=== PATIENT | male | born 1955 | race Caucasian/White ===

== ENCOUNTER 2016-12-30 13:19 | Emergency (ER) | payer OTHER ==
[~2016-12-30] VITALS: Ht 167.6 cm; Wt 78.0 kg
[2016-12-30 13:23] VITALS: TEMP 36.7; Ht 167.6 cm; Wt 78.0 kg
[2016-12-30] MEDS ORDERED: CRS5 PO (13:50)
[2016-12-30 14:46] VITALS: BP 147/88; PULSE 71; O2SAT 95
--- NOTE | 2016-12-31 19:18 | EMERGENCY ROOM VISIT NOTE ---
ED Visit Note First contact with patient: 13:34 Chief Complaint: Sewage water exposure. History of Present Illness: Mr. Smith is a 61-year-old white male who ambulates into the ED complaining of a work related sewage water exposure. Patient reports he works on a [employer]. 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 While working on the drain he reports himself and to other employees were splashed with road sewage. He reports immediately clean the areas that included the his face and arms with soap and water After exposure. 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 I did speak to the patient extensively about the type materials any did not believe that there was blood or human waste in the sewage. Currently he is not having any symptoms. Review of Systems: As noted above in history of present illness. Past Medical History: Dyslipidemia, status post hernia repair. Current Medications: Crestor. Allergies to Medications: Sulfa. Social History: Patient is currently employed; he feels safe in his home environment; he denies tobacco and alcohol use. Physical Examination: Vital Signs: Date Time Temp Pulse Resp B/P (MAP) Pulse Ox O2 Delivery O2 Flow Rate FiO2 12/30/16 14:46 71 147/88 95 Room Air 12/30/16 13:23 36.7 93 16 135/89 95 Room Air GENERAL: 61-year-old male in no acute distress, nontoxic-appearing, afebrile and hemodynamically stable. NEUROLOGICAL: Awake, alert and oriented to person, place and time. Answering questions appropriately and following commands. Normal gait. Good hand eye coordination. SKIN: Warm, dry and pink. No soft tissue eruptions or trauma noted. HEENT: Atraumatic and normocephalic. PERRLA. Sclera white and conjunctiva pink. No drainage from naris. Oral cavity moist and pink. Pharynx is nonerythematous or edematous. Speech normal. No lymphadenopathy. Trachea midline. No jugular venous distention. THORAX: Lungs sounds are clear to auscultation and equal bilaterally with symmetrical chest wall. ABDOMEN: Flat, soft and nontender. Positive bowel sounds in all quadrants. No guarding, rigidity or organomegaly. EXTREMITIES: Moves all extremities well on command and with purpose. All distal neurovascular statuses are intact and equal bilaterally. ED Course: Patient is assessed as noted above. Patient's medication list was reviewed. Patient's case was reviewed with Dr. Garcia; he did not feel hepatitis B immunizations were needed at this time but did recommend that I talked to infectious disease department. I contacted Breanna Jurado, infectious disease nurse specialist, and she consulted Dr. Raygoza of infectious disease and they recommended that the patient be immunized against hepatitis A and B; they recommended [facility]; additionally she did report they could start the series but they would have to make an appointment and not be seen for approximately one week. The [facility] was not available in this hospital's pharmacy. I then contacted occupational medicine and spoke with Ms. Mancilla who reported she had [facility] available at her office and would be willing to see the patient now and in follow-up. Patient was educated about today's findings and instructed on his treatment plan ; he verbalizes understanding and agreement with this plan. Clinical Impression: Work related injury. Sewage exposure. Disposition: Patient discharged home in stable condition accompanied by male friend; prior to departure he was reassessed and remained pain and symptom-free. Plan: Patient was encouraged to go immediately to the Occupational Medicine office in the [facility] room 302 for further evaluation and care and immunizations.
== END 2016-12-30 15:03 | disposition home or self-care (01) ==
LOC: C.EDB 13:21 → C.EDD 15:03
DX: Z77.098 Contact with and (suspected) exposure to other hazardous, chiefly nonmedicinal, chemicals (principal); Y92.89 Other specified places as the place of occurrence of the external cause; Y99.0 Civilian activity done for income or pay; E78.5 Hyperlipidemia, unspecified; Z79.899 Other long term (current) drug therapy; Z88.2 Allergy status to sulfonamides

== ENCOUNTER → 2016-12-30 | Outpatient (CLI) | payer OTHER ==
[~2016-12-30] MED LIST: CRS5 PO
== END | disposition home or self-care (01) ==
LOC: C.LAB1850 15:43
PROVIDERS: ATTEND Nurse Practitioner Family
DX: Z77.111 Contact with and (suspected) exposure to water pollution (principal)